=== PATIENT | male | born 1995 | race Caucasian/White ===

== ENCOUNTER 2016-11-07 16:16 | Emergency (ER) | payer OTHER ==
[~2016-11-07] VITALS: Ht 185.4 cm; Wt 70.1 kg
[~2016-11-07 16:16] MED LIST: CLINDAMYCIN HC300 MG PO; CLONIDINE HCL0.1 MG PO; EXTRA STRENGTH500 M1 PO; HYDROCODON-ACE1 EAC7 PO; INDOCIN25 MG PO; KEFLEX500 MG PO; LIBRIUM25 MG PO; NAPROXEN500 MG PO; NORCO 5/3251 TABLET PO; PERCOCET 10/1 TABLET PO; THIAMINE HCL100 MG PO; TRAZODONE HCL50 MG PO; VICODIN 5-3001 EACH PO
[2016-11-07] MEDS ORDERED: MOTRIN800 MG PO (18:07)
[2016-11-07] MEDS ORDERED: CLEOCIN300 MG PO (18:07)
[2016-11-07 18:49] VITALS: BP 145/84
== END 2016-11-07 18:50 | disposition home or self-care (01) ==
LOC: EME 16:16
DX: K08.89 Other specified disorders of teeth and supporting structures (principal); K04.7 Periapical abscess without sinus; F17.200 Nicotine dependence, unspecified, uncomplicated; Z88.0 Allergy status to penicillin
CPT/HCPCS: 99281; 99283

== ENCOUNTER 2017-04-20 13:40 | Emergency (ER) | payer OTHER ==
[~2017-04-20] VITALS: Ht 185.4 cm; Wt 81.4 kg
[~2017-04-20 13:40] MED LIST changes: +CLEOCIN300 MG PO; +MOTRIN800 MG PO
[2017-04-20] MEDS ORDERED: NAPROSYN500 MG PO (16:45)
[2017-04-20] MEDS ORDERED: FLOXIN OTIC SOLN5 ML LEFT EAR (16:45)
[2017-04-20 17:57] VITALS: BP 158/98
== END 2017-04-20 17:58 | disposition home or self-care (01) ==
LOC: EME 13:40
PROC: 3E0234Z Introduction of Serum, Toxoid and Vaccine into Muscle, Percutaneous Approach (ICD-10-PCS; principal; 2017-04-20)
DX: S09.22XA Traumatic rupture of left ear drum, initial encounter (principal); S20.211A Contusion of right front wall of thorax, initial encounter; S06.9X9A Unspecified intracranial injury with loss of consciousness of unspecified duration, initial encounter; S60.511A Abrasion of right hand, initial encounter; Y09 Assault by unspecified means; Z23 Encounter for immunization; R00.0 Tachycardia, unspecified; F10.99 Alcohol use, unspecified with unspecified alcohol-induced disorder; F17.200 Nicotine dependence, unspecified, uncomplicated
CPT/HCPCS: 70150; 70450; 71046; 72125; 99281; 99284

== ENCOUNTER 2017-05-07 20:59 | Emergency (ER) | payer OTHER ==
[~2017-05-07] VITALS: Ht 185.4 cm; Wt 80.4 kg
[~2017-05-07 20:59] MED LIST changes: +FLOXIN OTIC SOLN5 ML LEFT EAR; +NAPROSYN500 MG PO
[2017-05-07 21:22] LABS: HEMATOCRIT 49.5 % (38.0-50.0); HEMOGLOBIN 17.1 G/DL (12.5-16.6); MCH 31.8 PG (29.0-34.0); MCHC 34.5 G/DL (30.0-36.0); MCV 92.2 FL (86-99); PLATELET COUNT 196 K/uL (156-360); RBC DIS.WIDTH-CV 13.4 % (11.8-14.6); RBC DIS.WIDTH-SD 46.2 % (39-53); RED BLOOD COUNT 5.37 M/uL (4.00-5.50); WHITE BLOOD COUNT 9.5 K/uL (4.1-10.2)
[2017-05-07 21:32] LABS: ALBUMIN 4.8 g/dL (3.2-4.8)
[2017-05-07 21:33] LABS: CHLORIDE 100 mEq/L (99-109); POTASSIUM 3.8 mEq/L (3.7-5.4); SODIUM 139 mEq/L (136-147)
[2017-05-07 21:35] LABS: GLUCOSE 111 mg/dL (70-99); TOTAL PROTEIN 7.7 g/dL (6.4-8.3)
[2017-05-07 21:37] LABS: TOTAL BILIRUBIN 0.3 mg/dL (0.0-1.0)
[2017-05-07 21:38] LABS: SERUM ETHYL ALCOHOL 395 mg/dL
[2017-05-07 21:39] LABS: ALKALINE PHOSPHATASE 77 IU/L (3-129); CREATININE 0.9 mg/dL (0.6-1.3); GFR ESTIMATE (CALCULATED) > 59 mL/min/ (58.99-99999)
[2017-05-07 21:40] LABS: AST (GOT) 30 IU/L (2-34)
[2017-05-07 21:41] LABS: UREA NITROGEN (BUN) 12 mg/dL (9-23)
[2017-05-07 21:42] LABS: SALICYLATE < 5.0 MG/DL (15-30)
[2017-05-07 21:43] LABS: ACETAMINOPHEN (TYLENOL) < 10 mcg/mL (10-30); ALT (GPT) 23 IU/L (3-49)
[2017-05-07 23:20] LABS: AMPHETAMINE NEGATIVE (500 ng/mL); BARBITURATES NEGATIVE (200 ng/mL); BENZODIAZEPINES NEGATIVE (150 ng/mL); BUPRENORPHINE NEGATIVE (10 ng/mL); COCAINE NEGATIVE (150 ng/mL); METHADONE NEGATIVE (200 ng/mL); METHAMPHETAMINE NEGATIVE (500 ng/mL); OPIATES (MORPHINE) NEGATIVE (100 ng/mL); OXYCODONE NEGATIVE (100 ng/mL); PHENCYCLIDINE NEGATIVE (25 ng/mL); PROPOXYPHENE NEGATIVE (300 ng/mL); THC CANNABINOIDS NEGATIVE (50 ng/mL); TRICYCLIC ANTIDEPRESSANTS NEGATIVE (300 ng/mL)
[2017-05-08] MEDS ORDERED: LIBRIUM25 MG PO (18:52)
[2017-05-08] MEDS ORDERED: B-1100 MG PO (18:52)
[2017-05-08 19:23] VITALS: BP 136/82
== END 2017-05-08 19:27 | disposition home or self-care (01) ==
LOC: EME 20:59
PROVIDERS: Emergency Medicine
DX: R45.851 Suicidal ideations (principal); F32.9 Major depressive disorder, single episode, unspecified; F10.229 Alcohol dependence with intoxication, unspecified; F17.200 Nicotine dependence, unspecified, uncomplicated; Y90.8 Blood alcohol level of 240 mg/100 ml or more; Z87.898 Personal history of other specified conditions; Z88.0 Allergy status to penicillin
CPT/HCPCS: 80053; 85027; 90839; 99281; 99285; G0480

== ENCOUNTER 2017-07-24 12:52 | Emergency (ER) | payer OTHER ==
[~2017-07-24] VITALS: Ht 188 cm; Wt 72.7 kg
[~2017-07-24 12:52] MED LIST changes: +B-1100 MG PO
[2017-07-24 16:46] VITALS: BP 150/98
== END 2017-07-24 16:46 | disposition home or self-care (01) ==
LOC: EME 12:52
DX: F10.10 Alcohol abuse, uncomplicated (principal); F17.200 Nicotine dependence, unspecified, uncomplicated; Z88.0 Allergy status to penicillin
CPT/HCPCS: 99281; 99284

== ENCOUNTER 2017-11-23 05:31 | Emergency (ER) | payer OTHER ==
[~2017-11-23] VITALS: Ht 185.4 cm; Wt 74.7 kg
[2017-11-23 08:47] VITALS: BP 97/60
== END 2017-11-23 08:49 | disposition left against medical advice (07) ==
LOC: EME 05:31
DX: T17.928A Food in respiratory tract, part unspecified causing other injury, initial encounter (principal); X58.XXXA Exposure to other specified factors, initial encounter; R06.00 Dyspnea, unspecified; Z88.0 Allergy status to penicillin; F17.200 Nicotine dependence, unspecified, uncomplicated
CPT/HCPCS: 71046; 71250; 99281; 99284

== ENCOUNTER 2017-12-11 23:24 | Emergency (ER) | payer OTHER ==
[~2017-12-11] VITALS: Ht 185.4 cm; Wt 58.0 kg
[2017-12-12 00:57] LABS: HEMATOCRIT 41.1 % (38.0-50.0); HEMOGLOBIN 14.1 G/DL (12.5-16.6); MCH 31.7 PG (29.0-34.0); MCHC 34.3 G/DL (30.0-36.0); MCV 92.4 FL (86-99); PLATELET COUNT 211 K/uL (156-360); RBC DIS.WIDTH-CV 14.8 % (11.8-14.6); RBC DIS.WIDTH-SD 50.8 % (39-53); RED BLOOD COUNT 4.45 M/uL (4.00-5.50); WHITE BLOOD COUNT 5.6 K/uL (4.1-10.2)
[2017-12-12 01:01] LABS: APPEARANCE CLEAR ((CLEAR)); BILIRUBIN NEGATIVE; BLOOD MODERATE; COLOR COLORLESS ((YELLOW)); GLUCOSE (STRIP) NEGATIVE; KETONES NEGATIVE; LEUKOCYTES NEGATIVE; NITRITE NEGATIVE; PROTEIN (STRIP) NEGATIVE; SPECIFIC GRAVITY 1.003 (1.000-1.030); UROBILINOGEN 0.2 MG/DL (0.2-1.0)
[2017-12-12 01:04] LABS: CHLORIDE 101 mEq/L (99-109); POTASSIUM 3.6 mEq/L (3.7-5.4); SODIUM 142 mEq/L (136-147)
[2017-12-12 01:06] LABS: GLUCOSE 102 mg/dL (70-99)
[2017-12-12 01:07] LABS: BACTERIA NONE SEEN /HPF; EPITHELIAL CELLS NONE SEEN /HPF; MUCUS NONE SEEN /LPF; RED BLOOD CELLS 0-5 /HPF (0-5); UCUL ADDED? NO; WHITE BLOOD CELLS 0-5 /HPF (0-5)
[2017-12-12 01:09] LABS: SERUM ETHYL ALCOHOL 357 mg/dL
[2017-12-12 01:10] LABS: CREATININE 0.7 mg/dL (0.6-1.3); GFR ESTIMATE (CALCULATED) > 59 mL/min/ (58.99-99999)
[2017-12-12 01:11] LABS: UREA NITROGEN (BUN) 7 mg/dL (9-23)
[2017-12-12] MEDS ORDERED: MOTRIN600 MG PO (01:48)
[2017-12-12 02:07] LABS: ALBUMIN 4.1 g/dL (3.2-4.8)
[2017-12-12 02:10] LABS: TOTAL PROTEIN 6.2 g/dL (6.4-8.3)
[2017-12-12 02:11] LABS: TOTAL BILIRUBIN 0.5 mg/dL (0.0-1.0)
[2017-12-12 02:13] LABS: ALKALINE PHOSPHATASE 72 IU/L (3-129)
[2017-12-12 02:15] LABS: AST (GOT) 48 IU/L (2-34); DIRECT BILIRUBIN 0.2 mg/dL (0.0-0.3)
[2017-12-12 02:16] LABS: ALT (GPT) 26 IU/L (3-49); LIPASE 45 U/L (1.0-51.0)
[2017-12-12 05:12] VITALS: BP 122/84
== END 2017-12-12 05:15 | disposition home or self-care (01) ==
LOC: EME 23:24
PROVIDERS: Nurse Practitioner Family
PROC: 3E0234Z Introduction of Serum, Toxoid and Vaccine into Muscle, Percutaneous Approach (ICD-10-PCS; principal; 2017-12-11)
DX: S09.93XA Unspecified injury of face, initial encounter (principal); S00.91XA Abrasion of unspecified part of head, initial encounter; S40.812A Abrasion of left upper arm, initial encounter; S40.811A Abrasion of right upper arm, initial encounter; S00.11XA Contusion of right eyelid and periocular area, initial encounter; Y09 Assault by unspecified means; F10.129 Alcohol abuse with intoxication, unspecified; Y90.8 Blood alcohol level of 240 mg/100 ml or more; Z23 Encounter for immunization
CPT/HCPCS: 70450; 70486; 72125; 80048; 80076; 81003; 83690; 85027; 99281; 99284; G0480